=== PATIENT | male | born 1945 | race Caucasian/White ===

== ENCOUNTER 2022-08-14 05:11 | Emergency (ER) | payer MEDICARE, OTHER ==
[2022-08-14 07:10] LABS: BASOPHIL 0.9 % (0-2); EOSINOPHIL 10.3 % (0-7); HCT 48.2 % (42.0-52.0); HGB 15.7 g/dl (13.2-18.0); LYMPHOCYTE 18.8 % (15-48); MCH 29.3 pg (25.0-31.0); MCHC 32.6 g/dL (32.0-36.0); MCV 89.9 fL (78.0-100.0); MONOCYTE 16.2 % (0-12); MPV 9.4 fL (6.0-9.5); NEUTROPHIL 53.6 % (41-80); NRBC 0; PLT 174 K/uL (150-400); RBC 5.36 M/uL (4.70-6.00); RDW 14.5 % (11.5-14.0); WBC 5.4 K/uL (4.0-10.5)
[2022-08-14 07:31] LABS: BILIRUBIN - TOTAL 0.9 mg/dL (0.2-1.0); BUN/CREAT RATIO (CALC) 17.1 RATIO; CREATININE 1.11 mg/dL (0.67-1.17); GLOBULIN (CALCULATION) 3.8 g/dL; POTASSIUM 4.4 mmol/L (3.5-5.1); TOTAL PROTEIN 7.8 g/dL (6.4-8.2)
[2022-08-14 07:43] LABS: CORONAVIRUS 2019 SARS-COV-2 NEGATIVE (NEGATIVE); INFLUENZA A NAA NEGATIVE (NEGATIVE)
[2022-08-14] MEDS ORDERED: PREDNISONE 20MG20 MG PO (07:54)
[2022-08-14] MEDS ORDERED: VENTOLIN HFA IN18 GM INH (07:54)
== END 2022-08-14 08:18 | disposition home or self-care (01) ==
LOC: FER 05:11
PROVIDERS: Emergency Medicine
DX: J98.01 Acute bronchospasm (principal); J06.9 Acute upper respiratory infection, unspecified; F17.210 Nicotine dependence, cigarettes, uncomplicated; Z88.5 Allergy status to narcotic agent; Z20.822 Contact with and (suspected) exposure to COVID-19
CPT/HCPCS: 36415; 71045; 80053; 83880; 84484; 85025; 93005; 94640; 94664; J7512; U0002